=== PATIENT | female | born 1970 | race Caucasian/White ===

== ENCOUNTER 2017-07-19 21:25 | Emergency (ER) | payer OTHER ==
[2017-07-20 00:36] VITALS: BP 138/72
== END 2017-07-20 00:36 | disposition home or self-care (01) ==
LOC: ED 21:25
DX: S60.222A Contusion of left hand, initial encounter (principal); X58.XXXA Exposure to other specified factors, initial encounter; Y93.89 Activity, other specified; Y92.89 Other specified places as the place of occurrence of the external cause; Y99.8 Other external cause status
CPT/HCPCS: 90715